=== PATIENT | male | born 1955 | race American Indian/Alaskan Native ===

== ENCOUNTER 2017-08-30 08:51 | Outpatient (CLI) | payer OTHER ==
[2017-08-30] MEDS ORDERED: PROVENTIL IH ONE (09:54)
== END 2017-08-30 08:52 | disposition home or self-care (01) ==
LOC: PF 08:51
PROVIDERS: ATTEND Internal Medicine
DX: I42.9 Cardiomyopathy, unspecified (principal); E11.9 Type 2 diabetes mellitus without complications; I10 Essential (primary) hypertension; R05 Cough; R06.00 Dyspnea, unspecified; F17.210 Nicotine dependence, cigarettes, uncomplicated
CPT/HCPCS: 94060; 94640; 94729